=== PATIENT | female | born 1985 | race Caucasian/White ===

== ENCOUNTER 2019-10-20 10:34 | Emergency (ER) | payer MEDICARE, MEDICAID ==
[~2019-10-20] VITALS: Ht 162.6 cm; Wt 75.3 kg
--- NOTE | ~2019-10-20 | EMS ---
[address] [id number] [place] Patient Care Report Name: EUGENIO [facility]ONZALEZ [id number] Ad[facility]: 10/20/19 Attend Phys: Discharge: Date of : 85 Report #: [id number] THIS REPORT FOR: //name// Report Transmitted: 10/20/2019 10:50 EMS Care Summary [facility] Incident [id number] @ 10/20/2019 09:50 Incident Location [address] [place] [address] Patient EUGENIO GONZALEZ Female, 34 Years 1985 Patient Address [address] [place] [address] Patient History Seizures, Patient Allergies No known allergies, Chief Complaint seizure Disposition Transported No Lights/[place] Dispatch Reason Convulsions/Seizure Transported To [facility] Narrative Dispatched for adult female having seizures. Upon arrival pt. was lying in bed and was alert but disoriented. Family stated that pt. has history of seizures since she was [age] and are well controlled with medication. Pt. has been out of her medication for an unknown period of time. Family stated that pt. has full body seizures and had 1 yesterday and 5 today lasting anywhere from 1 to [address] [place] [address] EMS Patient Care Report Name: EUGENIO GONZALEZ Room: [facility]#: [id number] Admission: 10/20/19 Attend Phys: Discharge: Date of : [birth year] Report #: [id number] minutes each. Pt. is normally post ictal for 30 minutes to an hour. Pt. VS were stable and BS was 127. Pt. continued to be post ictal and the decision was made to transport to [facility]. IV was started en route. Pt. gradually became more responsive and oriented. Upon arrival at ED pt. was A&Ox3. VS were stable. Pt. was transported to [facility] for emergency services. Initial Vitals @10:15P: 100,R: 20,BP: 106/70,GCS: 13,SpO2: 99,Revised Trauma: 12, @10:30P: 100,R: 20,BP: 110/62,GCS: 14,SpO2: 100,Revised Trauma: 12, @10:00P: 120,R: 20,BP: 113/72,GCS: 11,Glucose: 127,SpO2: 98,Revised Trauma: 11,MS Suspected: false Assessments @10:00MENTAL:Confused,SKIN:HEENT:Head/Face: No Abnormalities,Eyes: No Abnormalities,Neck/Airway: No Abnormalities,LUNG SOUNDS:General: No Abnormalities,ABDOMEN:General: No Abnormalities,PELVIS//GI:EXTREMITIES:Left Arm: No Abnormalities,Right Arm: No Abnormalities,Left Leg: No Abnormalities,Right Leg: No Abnormalities,PULSE:NEURO:Seizures, Impression Seizures Procedures @10:15Saline Lock 10cc (20 ga) Site: Forearm-RightResponse: UnchangedSucceeded Timeline 09:48,Call Received 09:50,Dispatched 09:50,En Route 09:53,Initial Responder On Scene 09:53,On Scene 09:55,At Patient 10:00,BP: 113/72 M,PULSE: 120,RR: 20 R,SPO2: 98 Ox,ETCO2: ,B,PAIN: ,GCS: 11, 10:07,Depart Scene 10:15,BP: 106/70 M,PULSE: 100,RR: 20 R,SPO2: 99 Ox,ETCO2: ,BG: ,PAIN: ,GCS: 13, 10:15,Saline Lock 10cc 20 ga Site: Forearm-Right,Response: UnchangedSucceeded, 10:29,At Destination 10:30,BP: 110/62 M,PULSE: 100,RR: 20 R,SPO2: 100 Ox,ETCO2: ,BG: ,PAIN: ,GCS: 14, 10:33,Transfer Patient 11:04,Call Closed 11:04,In District Disclaimer v1.1 Copyright 2020 [place] [address] EMS Patient Care Report Name: EUGENIO GONZALEZ Room: [facility] P[facility]rez#: [id number] Admission: 10/20/19 Attend Phys: Discharge: Date of : 85 Report #: [id number] This EMS Care Summary contains data elements from the applicable legal record (which may be displayed differently). It is designed to provide pertinent information for the following purposes: continuity of care, clinical quality, and state data reporting. The complete legal record is available to ED staff and administrators of the receiving hospital in [facility]'s Patient Tracker. All data is provided "as is."
[~2019-10-20 10:34] MED LIST: AMOXICILLIN500 M1 PO; ANTIVERT25 MG PO; ATIVAN1 MG PO; CITROMA296 ML PO; CLEOCIN HCL300 MG PO; COLACE100 MG PO; DEPAKOTE ER500 MG PO; ENEMA READY TO135 M1 RC; KEPPRA; KEPPRA 500 MG500 M1 PO; KEPPRA 500 MG500 M2 PO; KEPPRA 500 MG500 MG PO; KEPPRA1000 MG PO; LAMOTRIGINE25 M2 PO; NORCO 5-325 TA1 EACH PO; PENICILLIN VK500 MG PO; PROMETHAZINE12.5 MG RC; ZOFRAN4 MG PO; ZONEGRAN100 MG; ZYPREXA20 MG PO; ZYPREXA5 MG PO
[2019-10-20] MEDS ORDERED: DEPAKOTE ER500 M1 PO (10:43)
[2019-10-20 11:01] LABS: ABSOLUTE BASOPHILS 0.1 thou/uL (0.0-0.2); ABSOLUTE LYMPHOCYTES 3.3 thou/uL (0.8-5.3); ABSOLUTE MONOCYTES 1.2 thou/uL (0.0-1.2); ABSOLUTE NEUTROPHILS 10.1 thou/uL (1.6-8.1); BASOPHILS 0.6 %; EOSINOPHILS 0.1 %; HEMOGLOBIN 13.3 gm/dL (12.0-15.0); LYMPHOCYTES 22.7 %; MCH 32.8 pg (26.0-34.0); MCV 93.6 fL (80.0-100.0); MONOCYTES 7.9 %; NUCLEATED RBCS 0 /100WBC; PLATELET COUNT* 225 thou/uL (150-400); POLYS 68.7 %; RBC 4.06 mil/uL (4.20-5.00); RDW-CV 14.6 % (10.5-14.5); WBC 14.7 thou/uL (4.0-11.0)
[2019-10-20 11:10] LABS: CALCIUM 8.7 mg/dL (8.5-10.1); POTASSIUM 3.8 mmol/L (3.5-5.1)
[2019-10-20 11:14] LABS: ALBUMIN 3.6 g/dL (3.4-5.0); TOTAL BILIRUBIN 0.4 mg/dL (<0.1-1.0); TOTAL PROTEIN 6.9 g/dL (6.4-8.2)
[2019-10-20] MEDS ORDERED: KEPPRA 500 MG500 M1 PO (11:40)
[2019-10-20 12:45] VITALS: BP 107/68
== END 2019-10-20 12:46 | disposition home or self-care (01) ==
LOC: M.ERS 10:34
PROVIDERS: Family Medicine
DX: R56.9 Unspecified convulsions (principal); F17.210 Nicotine dependence, cigarettes, uncomplicated